=== PATIENT | male | born 1955 | race Caucasian/White ===

== ENCOUNTER 2021-09-24 10:27 | Emergency (ER) | payer MEDICARE, OTHER ==
[~2021-09-24] VITALS: Ht 180.3 cm; Wt 113.4 kg
--- NOTE | 2021-09-24 10:45 | NUR ---
Patient ambulatory, alert and orientedx4 complaints of left elbow swelling but per pt its not painful. Patient vitals stable. Denies abdominal pain, nausea,vomiting.
--- NOTE | 2021-09-24 10:47 | NUR ---
MD at bedside, medical screeening exam in process.
[2021-09-24] MEDS ORDERED: ASPI81TA31 PO (10:49)
[2021-09-24] MEDS ORDERED: CARV12.52 PO (10:49)
[2021-09-24] MEDS ORDERED: [UNRECOGNIZED DRUG - REMARK] (10:49)
[2021-09-24] MEDS ORDERED: WATER PILL (10:49)
[2021-09-24] MEDS ORDERED: AMLO2.5T4 PO (10:49)
[2021-09-24] MEDS ORDERED: LISI40TA13 PO (10:49)
[2021-09-24 11:18] VITALS: BP 115/85
--- NOTE | 2021-09-24 11:18 | NUR ---
Wale wrap applied on Left elbow. Patient discharged to home in stable condition. Written and verbal after care instructions given. Patient verbalizes understanding of instructions. Stressed follow up or return to ER for worsening s/s.
== END 2021-09-24 11:22 | disposition home or self-care (01) ==
LOC: ER 10:31
DX: M70.22 Olecranon bursitis, left elbow (principal); Y93.73 Activity, racquet and hand sports; Z95.5 Presence of coronary angioplasty implant and graft; Z79.82 Long term (current) use of aspirin; Z79.899 Other long term (current) drug therapy
CPT/HCPCS: A4663